=== PATIENT | male | born 1965 | race Two or more races ===

== ENCOUNTER 2018-03-25 17:26 | Emergency (ER) | payer MEDICARE, MEDICAID ==
[~2018-03-25] VITALS: Ht 165.1 cm; Wt 74.8 kg
--- NOTE | 2018-03-25 18:13 | NUR ---
PT BIB [facility]IVATE [facility]ANCE TO ER BED 02. HERE FOR FREQUENT FALL EVAL. PT IS AAOX3 AND STATING THAT FOR THE PAST WEEK IS BEEN FALLING. LAST ONE WAS TODAY. PT IS AMBULATORY, APPEARS SHAKY. STABLE VITALS. AWAITING MD MONTEIRO.
--- NOTE | 2018-03-25 18:15 | NUR ---
DR JUAREZ AT BEDSIDE FOR EVAL.
[2018-03-25] MEDS ORDERED: BENZTROPINE MESYLATE (1 MG) 1 MG TABLET ONE (18:28)
[2018-03-25] MEDS ORDERED: BENZTROPINE MESYLATE (1 MG) 1 MG TABLET PO ONE (18:30)
--- NOTE | 2018-03-25 18:32 | NUR ---
DIRECTOR OF SURGERY AT BEDSIDE FOR BLOOD DRAW.
[2018-03-25 18:39] LABS: BASOPHILS # (AUTO) 0.1 /CMM (0.0-0.2); EOSINOPHILS % (AUTO) 5.2 % (0.0-6.0); HEMATOCRIT 48 % (39-51); HEMOGLOBIN 15.9 g/dL (13.5-17.5); LYMPHOCYTES # (AUTO) 2.6 /CMM (0.8-4.8); LYMPHOCYTES % (AUTO) 32.1 % (20.0-44.0); MEAN CORPUSCULAR HGB CONC 33 g/dl (31.0-36.0); MEAN CORPUSCULAR VOLUME 90 fL (80-96); MONOCYTES # (AUTO) 0.7 /CMM (0.1-1.30); MONOCYTES % (AUTO) 9.1 % (2.0-12.0); NEUTROPHILS # (AUTO) 4.2 /CMM (1.8-8.9); NEUTROPHILS % (AUTO) 52.6 % (43.0-81.0); PLATELET COUNT (AUTO) 197 /CMM (150-450)
[2018-03-25 18:54] LABS: CALCIUM, SERUM 8.6 mg/dL (8.5-10.1); POTASSIUM 3.9 mmol/L (3.5-5.1)
--- NOTE | 2018-03-25 19:24 | NUR ---
REPORT TO BHARGAV ESTEVEZ FOR [facility].
--- NOTE | 2018-03-25 19:33 | NUR ---
[facility] CALLED FOR TRANSPORT. ETA [id number] TRIP#[id number]
--- NOTE | 2018-03-25 20:19 | NUR ---
CALLED [facility] TO GIVE ETA ON PT
[2018-03-25 21:01] VITALS: BP 118/82
== END 2018-03-25 23:03 | disposition home or self-care (01) ==
LOC: ER 17:29
DX: G24.09 Other drug induced dystonia (principal); F29 Unspecified psychosis not due to a substance or known physiological condition; F17.200 Nicotine dependence, unspecified, uncomplicated
CPT/HCPCS: 36415; 80048; 85025; 99283; A4606

== ENCOUNTER 2018-04-07 20:01 | Inpatient (IN) | payer MEDICARE, MEDICAID ==
[~2018-04-07] VITALS: Ht 165.1 cm; Wt 68.6 kg
--- NOTE | 2018-04-07 19:55 | NUR ---
CARTRIDGE FEEDER NOTES ADMITTED A 52 YR/OLD MALE PATIENT VIA WHEELCHAIR, AWAKE ALERT ORIENTEDX3, NO COMPLAINTS OF PAIN, NO SOB OR DISTRESS AT THIS TIME. PATIENT HAS IV ACCESS ON HIS RIGHT AC G#20 INTACT AND PATENT, INITIAL ASSESSMENT INITIATED, PATIENT REFUSED TO CHANGED TO HOSPITAL GOWN, REFUSED FOR SKIN ASSESSMENT, WANTS TO REST AND EAT, ABLE TO ANSWER ADMISSION QUESTIONNAIRES, ALL SAFETY PRECAUTIONS IN PLACE, BED IN LOWEST LOCKED POSITION, X2 SIDE RAILS UP AND CALL LIGHT WITHIN REACH. WILL CONTINUE TO MONITOR ACCORDINGLY. Addendum: 04/08/18 at 0407 by KEON LARSON RN INCORRECT TIME
--- NOTE | 2018-04-07 20:20 | NUR ---
PT BIBFAMILY C/O GENERALIZED WEAKNESS. PT DENIES ANY RECENT TRAUMA OR INJURY. PT AAOX4. RESPIRATIONS EVEN AND UNLABORED. SKIN WARM AND INTACT. NO ACUTE DISTRESS NOTED. PT AMBULATORY WITH STEADY GAIT. WILL CONTINUE TO MONITOR
[2018-04-07] MEDS ORDERED: RISP3TAB5 PO (20:24)
[2018-04-07] MEDS ORDERED: PROP20TA7 PO (20:24)
[2018-04-07] MEDS ORDERED: TRAZ-214 PO (20:24)
[2018-04-07] MEDS ORDERED: ZOLP5TAB8 PO (20:24)
[2018-04-07] MEDS ORDERED: OXCA150T5 PO (20:24)
[2018-04-07] MEDS ORDERED: HALO5TAB8 PO (20:24)
[2018-04-07] MEDS ORDERED: DIVA-78 PO (20:24)
--- NOTE | 2018-04-07 20:25 | NUR ---
URINE COLLECTED AND SENT TO LAB
[2018-04-07 20:34] LABS: APPEARANCE,URINE Clear (CLEAR); BILIRUBIN,URINE Negative (NEGATIVE); BLOOD, URINE Negative Ery/uL (NEGATIVE); COLOR,URINE Yellow (YELLOW); KETONES,URINE Trace (NEGATIVE); LEUKOCYTE ESTERASE ,URINE Negative (NEGATIVE); NITRITE, URINE Negative (NEGATIVE); PH,URINE 7.5 (5.0-8.0); PROTEIN,URINE Negative (NEGATIVE); UGLUCOSE Negative (NEGATIVE)
[2018-04-07 20:40] LABS: BASOPHILS # (AUTO) 0.1 /CMM (0.0-0.2); BASOPHILS % (AUTO) 1.3 % (0.0-2.0); EOSINOPHILS % (AUTO) 4.6 % (0.0-6.0); HEMATOCRIT 45 % (39-51); HEMOGLOBIN 15.2 g/dL (13.5-17.5); LYMPHOCYTES # (AUTO) 2.8 /CMM (0.8-4.8); MEAN CORPUSCULAR HGB CONC 33 g/dl (31.0-36.0); MEAN CORPUSCULAR VOLUME 91 fL (80-96); MONOCYTES # (AUTO) 0.8 /CMM (0.1-1.30); MONOCYTES % (AUTO) 9.7 % (2.0-12.0); NEUTROPHILS # (AUTO) 4.4 /CMM (1.8-8.9); NEUTROPHILS % (AUTO) 51.4 % (43.0-81.0); PLATELET COUNT (AUTO) 183 /CMM (150-450); WHITE BLOOD COUNT (AUTO) 8.6 K/uL (4.3-11.0)
[2018-04-07 20:58] LABS: MAGNESIUM 2.1 mg/dL (1.8-2.4)
[2018-04-07 21:04] LABS: ALANINE AMINOTRANSFERASE 29 U/L (12-78); ALBUMIN 3.3 g/dL (3.4-5.0); ALKALINE PHOSPHATASE 46 U/L (46-116); ASPARTATE AMINOTRANSFERASE 18 U/L (15-37); BILIRUBIN,DIRECT 0.1 mg/dL (0.0-0.2); BILIRUBIN,TOTAL 0.3 mg/dL (0.2-1.0); CALCIUM, SERUM 8.4 mg/dL (8.5-10.1); CARBON DIOXIDE 26 mmol/L (21-32); CHLORIDE 106 mmol/L (98-107); CREATININE 1.1 mg/dL (0.6-1.3); GLUCOSE 114 mg/dL (74-106); LIPASE 126 U/L (73-393); POTASSIUM 3.9 mmol/L (3.5-5.1); SODIUM SERUM 141 mmol/L (136-145); TOTAL PROTEIN, SERUM 6.3 g/dL (6.4-8.2); UREA NITROGEN, BLOOD 27 mg/dL (7-18)
--- NOTE | 2018-04-07 21:16 | NUR ---
GAVE REPORT TO MARIANELA ESTEVEZ FOR [facility]
[2018-04-07 21:40] VITALS: BP 111/74
--- NOTE | 2018-04-07 21:44 | NUR ---
PT TRANSFERRED TO [facility] BED 312 VIA WHEELCHAIR
--- NOTE | 2018-04-07 21:55 | NUR ---
CLIENT TECHNICAL SPECIALIST NOTES ADMITTED A 52 YR/OLD MALE PATIENT VIA WHEELCHAIR, AWAKE ALERT ORIENTEDX3, NO COMPLAINTS OF PAIN, NO SOB OR DISTRESS AT THIS TIME. PATIENT HAS IV ACCESS ON HIS RIGHT AC G#20 INTACT AND PATENT, INITIAL ASSESSMENT INITIATED, PATIENT REFUSED TO CHANGED TO HOSPITAL GOWN, REFUSED FOR SKIN ASSESSMENT, WANTS TO REST AND EAT, ABLE TO ANSWER ADMISSION QUESTIONNAIRES, ALL SAFETY PRECAUTIONS IN PLACE, BED IN LOWEST LOCKED POSITION, X2 SIDE RAILS UP AND CALL LIGHT WITHIN REACH. WILL CONTINUE TO MONITOR ACCORDINGLY.
[2018-04-07 22:00] VITALS: BP 111/47
[2018-04-07] MEDS ORDERED: KETOROLAC TROMETHAMINE INJ 30 MG/ML VIAL IV PRN (23:25)
[2018-04-08] MEDS ORDERED: IV PREMIX 0.45% NS + KCL 1,000 ML IV ONE (01:08)
[2018-04-08 07:25] LABS: CALCIUM, SERUM 8.2 mg/dL (8.5-10.1); CREATININE 0.8 mg/dL (0.6-1.3); POTASSIUM 3.7 mmol/L (3.5-5.1)
--- NOTE | 2018-04-08 07:28 | NUR ---
RN NOTES PATIENT IS RESTING COMFORTABLY AT THIS TIME, ABLE TO REST AND SLEEP AT INTERVALS, PATIENT IS INSISTING TO STAND UP WHILE USING URINAL WHEN URINATING, NOTED MILD WEAKNESS, NEEDS ASSISTANCE WHEN STANDING, STABLE THE ENTIRE SHIFT NO COMPLAINTS OF PAIN OR DISCOMFORT, ENDORSED TO AM NURSE FOR CONTINUITY OF CARE.
[2018-04-08 08:00] VITALS: BP 148/76
--- NOTE | 2018-04-08 08:00 | NUR ---
bed alarm on and reset several times as pt. attempting to get oob often.
[2018-04-08] MEDS: CLOZAPINE 100 MG TABLET PO SCH ×2 (09:31→17:55)
--- NOTE | 2018-04-08 13:15 | NUR ---
getting oob continually needs closer supervision-relocated to rm. [id number].consumer loan manager monika veras.
--- NOTE | 2018-04-08 15:00 | NUR ---
medicated x1 for pain.
[2018-04-08 16:00] VITALS: BP 126/82
--- NOTE | 2018-04-08 19:50 | NUR ---
RN NOTES RECEIVED PATIENT AWAKE IN BED, NOT IN DISTRESS, BREATHING EVEN AND UNLABORED, PATIENT IS WEAK HOWEVER ALWAYS ATTEMPTING TO GET OUT OF BED, AMBULATING TO AND FROM THE TOILET WITH ASSISTANCE, EXPLAINED TO PATIENT THE DANGER OF GETTING OUT OF BED WITHOUT ASKING FOR ASSISTANCE, PATIENT HAS A HISTORY OF MULTIPLE GROUND FALLS, PATIENT VERBALIZES UNDERSTANDING, ALL NEEDS ATTENDED, KEPT PATIENTS' ROOM CLOSE TO NURSING STATION FOR SAFETY, BED IN LOW POSITION, WILL CONTINUE TO MONITOR ACCORDINGLY.
[2018-04-08 20:00] VITALS: BP 121/72
[2018-04-08 20:38] VITALS: BP 121/72
--- NOTE | 2018-04-09 06:11 | NUR ---
RN NOTES PATIENT ABLE TO REST AND SLEEP AT INTERVALS, NO SIGNS OF ACUTE DISTRESS NOTED, REFUSED TO CHANGE HIS STREET CLOTHES WITH A HOSPITAL GOWN, ABLE TO AMBULATE WITH STANDBY ASSIST GOING TO AND FROM THE TOILET. WILL ENDORSE TO AM NURSE FOR CONTINUITY OF CARE.
[2018-04-09 07:00] VITALS: BP 115/74
[2018-04-09 07:07] LABS: BASOPHILS # (AUTO) 0.1 /CMM (0.0-0.2); BASOPHILS % (AUTO) 0.8 % (0.0-2.0); EOSINOPHILS % (AUTO) 4.5 % (0.0-6.0); HEMATOCRIT 46 % (39-51); HEMOGLOBIN 15.4 g/dL (13.5-17.5); LYMPHOCYTES # (AUTO) 2.7 /CMM (0.8-4.8); LYMPHOCYTES % (AUTO) 34.7 % (20.0-44.0); MEAN CORPUSCULAR HGB CONC 33 g/dl (31.0-36.0); MEAN CORPUSCULAR VOLUME 90 fL (80-96); MONOCYTES # (AUTO) 0.6 /CMM (0.1-1.30); PLATELET COUNT (AUTO) 161 /CMM (150-450); RED BLOOD CELL COUNT(AUTO) 5.13 MIL/uL (4.5-6.0); WHITE BLOOD COUNT (AUTO) 7.7 K/uL (4.3-11.0)
--- NOTE | 2018-04-09 07:18 | NUR ---
RN NOTES PATIENT A/OX3, BREATHING EVEN AND UNLABORED, NO SOB NOTED, IVF INFUSING AND TOLERATING WELL, INSTRUCTED PATIENT TO CALL FOR ASSISTANCE HE IS A RISK FOR FALL, BED ALARM ON, CALL LIGHT WITHIN REACH, WILL CONTINUE TO MONITOR.
[2018-04-09] MEDS: CLOZAPINE 100 MG TABLET PO SCH ×2 (08:53→17:06)
[2018-04-09 16:00] VITALS: BP 137/81
--- NOTE | 2018-04-09 18:26 | NUR ---
RN NOTES PATIENT AMBULATE WITH STEADY GAIT, KEPT ON SUPERVISION. IVF INFUSING AND TOLERATING WELL, DENIES PAIN OR DISCOMFORT. PATIENT HAS A LARGE APPETITE, ALWAYS REQUESTING FOR 2 TRAYS OF FOOD. PATIENT ON REGULAR DIET, GIVEN SNACKS. NEEDS ATTENDED, CALL LIGHT WITHIN REACH, WILL ENDORSE TO CARDIOVASCULAR SURGEON FOR [facility].
[2018-04-09 20:00] VITALS: BP 132/82
[2018-04-09] MEDS ORDERED: MIRTAZAPINE 15 MG TABLET PO SCH (22:00)
--- NOTE | 2018-04-10 06:15 | NUR ---
MS RN NOTES AWAKE & RESPONSIVE. NOT IN ANY DISTRESS. NO SOB NOTED. DENIES ANY PAIN OR DISCOMFORT AT THIS TIME. AM CARE DONE. MONITORED ACCORDINGLY. CALL LIGHT WITHIN REACH. BED IN LOWEST POSITION. SR UP X 2 FOR SAFETY. WILL ENDORSE TO NEXT SHIFT.
[2018-04-10 08:00] VITALS: BP 121/88
--- NOTE | 2018-04-10 08:00 | NUR ---
m/s coutierier: initial assessment seen and examined by dr. ortez with order d'c pt to snf. order carried out. pt aware. no distress noted. vss.
[2018-04-10] MEDS: CLOZAPINE 100 MG TABLET PO SCH (08:35)
--- NOTE | 2018-04-10 11:00 | NUR ---
m/s procurement director: notes pt for d'c to snf at 1400 per cn and case management. pt made aware. pt unable to sign discharge papers due to cognitive impairment. 2 license staff signed all d'c papers. all belongings returned to pt.
--- NOTE | 2018-04-10 13:35 | NUR ---
m/s dance instructor: notes report given to monie (rn) from [facility] for continuity of care.
--- NOTE | 2018-04-10 13:50 | NUR ---
m/s post office clerk: notes ambulance here and report given to one of the crew. sandra [phone] (sister) aware of d'c to snf. pt stable for discharge.
--- NOTE | 2018-04-10 14:00 | NUR ---
m/s senior sql developer: discharged discharged to snf in stable condition with all d'c papers and belongings via ambulance.
== END 2018-04-10 13:00 | DRG 682 ==
LOC: ER 20:05 → MED 21:03
PROVIDERS: ADMIT Internal Medicine; ATTEND Internal Medicine
DX: N17.9 Acute kidney failure, unspecified (principal); G92 Toxic encephalopathy; F84.0 Autistic disorder; T43.8X5A Adverse effect of other psychotropic drugs, initial encounter; Y92.89 Other specified places as the place of occurrence of the external cause; F20.9 Schizophrenia, unspecified; R63.4 Abnormal weight loss; Z68.25 Body mass index [BMI] 25.0-25.9, adult
CPT/HCPCS: 36415; 80048-TC; 80076-TC; 81000-TC; 82550-TC; 83690-TC; 83735-TC; 84484-TC; 85025-TC; 85730-TC; 87081-TC; G0378; J1885; J3480; J3490